=== PATIENT | female | born 1950 | race Caucasian/White ===

== ENCOUNTER 2024-09-03 12:45 | Outpatient (OUT) | payer MEDICARE, OTHER, SELFPAY ==
--- NOTE | 2024-09-03 13:02 | MM_ITS ---
Patient Name: ALKA DARBY MR#: [id number] : 1950 Exam Date: 09/03/2024 Ordering Doctor: [facility] REPORT PROCEDURE: MM TOMOSYNTHESIS DIAGNOSTIC LT, 09/03/2024, 13:03 US BREAST LT LIMITED, 09/03/2024, 13:24 COMPARISON: MG MAMM SCREEN 3D ARMAAN CAD, 08/29/2024. MG MAMM SCREEN 3D ARMAAN CAD, 03/23/2022. MG MAMM ARMAAN DIAG W CAD DIG, 07/31/2014. INDICATIONS: Abnormal Mammogram R92.8 Calculator Name NCI Breast Cancer Risk Assessment Tool 5 Year Breast Cancer Risk 3.70% Lifetime Breast Cancer Risk 7.90% Personal Breast Cancer No Personal Ovarian Cancer No Treatments None Family Cancers Sister with breast cancer at age 59; Father with lung/brain cancer at age 49. LOCATION: [facility] BREAST COMPOSITION: The breasts are heterogeneously dense,which may obscure small masses. FINDINGS: DIAGNOSTIC CATEGORY 4--SUSPICIOUS FOR MALIGNANCY. FINDING DOES NOT EXHIBIT CLASSIC FINDINGS OF BREAST CANCER: LEFT BREAST: Spot magnification views demonstrate an 8 mm slightly lobular nodule within the posterior breast , upper inner quadrant. Ultrasound evaluation demonstrates a 7 x 7 x 4 mm hypoechoic lobular nodule at the 12 o'clock position, 3.0 cm from the nipple. Ultrasound-guided biopsy is recommended. RECOMMENDATIONS: ULTRASOUND-GUIDED CORE BIOPSY: LEFT BREAST PLEASE NOTE: A NORMAL MAMMOGRAM DOES NOT EXCLUDE THE POSSIBILITY OF BREAST CANCER. A CLINICALLY SUSPICIOUS PALPABLE LUMP SHOULD BE BIOPSIED. Dictated by: Kaiser Torres M.D. on 09/03/2024 at 13:40 Approved by: Kaiser Torres M.D. on 09/03/2024 at 13:47
== END 2024-09-03 12:46 | disposition home or self-care (01) ==
PROVIDERS: PCP Nurse Practitioner; Visit Provider Nurse Practitioner
DX: R92.8 Other abnormal and inconclusive findings on diagnostic imaging of breast (principal); Z80.3 Family history of malignant neoplasm of breast; Z80.1 Family history of malignant neoplasm of trachea, bronchus and lung; Z80.8 Family history of malignant neoplasm of other organs or systems; N63.22 Unspecified lump in the left breast, upper inner quadrant
CPT/HCPCS: 76642; 77065; G0279

== ENCOUNTER 2024-09-15 07:43 | Day surgery (SDC) | payer MEDICARE, OTHER, SELFPAY ==
--- OUTSIDE RECORDS SUMMARY | 2024-09-15 07:46 | XMS_ITS | CCD ---
Author Organization [facility] Care Team Providers Care Chro Name Role Phone REQUEST, NONE LISTED Admitting Unavaila ble REQUEST, NONE LISTED Attending Unavaila ble REQUEST, NONE LISTED Consulting Unavaila ble REQUEST, NONE LISTED Admitting Unavaila ble REQUEST, NONE LISTED Attending Unavaila ble REQUEST, NONE LISTED Consulting Unavaila ble Kari Sue Unavailable CAM TAPIA Attending Unavailable CAM TAPIA Referring Unavailable CAM TAPIA Primary Care Unavailable CAM TAPIA Referring Unavailable CAM TAPIA Primary Care Unavailable CAM TAPIA Referring Unavailable CAM TAPIA Primary Care Unavailable CAM TAPIA Referring Unavailable CAM TAPIA Primary Care Unavailable Tapia ADULT CARE MANAGER-LOGISTIC SPECIALIST, Cam Logan Primary Care Provid er Allergies Allergy Classification Reported Allergen(s) Allergy Type Date of Onset Reaction(s) Facility (4 sources) fentaNYL; Translations: [FENTANYL] Drug Allergy 08-07-2023 Vomiting [facility] Medications Current Medications Medication Drug Class(es) Dates Sig (Normalized) Sig (Original) amoxicillin 875 mg oral tablet (1 source) Penicillin-class Antibacterial Start: 04-05-2023 take 1 tablet by mouth every twelve hours Amoxicillin 875 MG 1 capsule Orally Twice a day for 7 days March, Active fluticasone propionate 0.05 mg/actuat metered dose nasal spray (1 source) Corticosteroid Start: 04-05-2023 take 1 spray(s) nasal route twice daily Flonase Allergy Relief 50 MCG/ACT 1 spray in each nostril Nasally Twice a day for 14 days March, Active vitamin b12 0.1 mg oral tablet (1 source) Vitamin B12 take 1 tablet by mouth in the morning cyanocobalamin (vitamin B-12) 100 MCG tablet Take 1 tablet (100 mcg total) by mouth in the morning. Active Completed/Discontinued Medications Medication Drug Class(es) Dates Sig (Normalized) Sig (Original) ondansetron 4 mg disintegrating oral tablet (1 source) Serotonin-3 Receptor Antagonist take 1 tablet by mouth every six hours for nausea Ondansetron 4 MG dissolve 1 tablet ON TONGUE every 6 hours if needed for nausea Oral for 2 Days Not-Taking Problems Active Problems Problem Classification Problem Date Documented Date Episodic/Chronic Disorders of lipid metabolism (2 sources) Mixed hyperlipidemia; Translations: [Mixed hyperlipidemia] Onset: 08-11-2024 Chronic Immunizations and screening for infectious disease (2 sources) Encounter for screening for other viral diseases; Translations: [Encounter for screening for other viral diseases] Onset: 08-11-2024 Episodic Other screening for suspected conditions (not mental disorders or infectious disease) (14 sources) Encounter for screening for cardiovascular disorders; Translations: [Encounter for screening for other disorder] Onset: 08-11-2024 Episodic Otitis media and related conditions (1 source) Other acute nonsuppurative otitis media, right ear Episodic Residual codes; unclassified (2 sources) Asymptomatic menopausal state; Translations: [Asymptomatic menopausal state] Onset: 08-11-2024 Episodic Unclassified (1 source) Annual Exam Onset: 08-11-2024 Past or Other Problems Problem Classification Problem Date Documented Da te Episodic/Chronic Mood disorders (1 source) Mood disorders Onset: 08-11-2024 08-11-2024 Unclassified (1 source) Onset: 08-11-2024 08-11-2024 Results Test Name Value Interpretation Reference Range Facil ity MAMM SCREENING BILATERAL W C single needle operator 09-01-2024 MAMM SCREENING BILATERAL W CAD MAMM SCREENING BILATERAL W CAD LYNNETTE SCHWARTZ 1950 [id number] EXAM: MAMM SCREENING BILATERAL W CAD, 08/29/2024 10:22 AM CLINICAL INDICATIONS: Screening, Encounter for screening mammogram for malignant neoplasm of breast COMPARISON: 03/23/2022 TECHNIQUE: Bilateral digital tomosynthesis MLO and CC views of the breasts were obtained, with creation of synthetic 2D views. Computer aided detection was utilized. FINDINGS: There are scattered areas of fibroglandular density. There is a 7 mm round mass of the 11-12 o'clock left breast, 4.6 cm from the nipple. There are no right breast suspicious masses, calcifications, or areas of architectural distortion. IMPRESSION: 1. There is a 7 mm mass of the 11-12 o'clock left breast at posterior depth. This is indeterminate and targeted sonographic images are recommended for further characterization. 2. Negative mammogram of the right breast. BI-RADS: BI-RADS 0 - Incomplete. Needs additional imaging evaluation. Recommendation: Additional imaging required. Finalized by Sandra Ramsay MD on 09/01/2024 8:23 AM 0A b ADDITIONAL I Normal [facility] DEXA SCAN CENTRAL SKELETALon 08-29-2024 DEXA SCAN CENTRAL SKELETAL DEXA SCAN CENTRAL SKELETAL CLINICAL INFORMATION: Encounter for screening for osteoporosis; Asymptomatic menopausal state. Post menopausal TECHNIQUE: Dual X-ray Absorptiometry (DXA) was performed. COMPARISON: 03/15/2022 FINDINGS: LUMBAR SPINE (L1-L4): BMD is 0.780 gm/cm2. Increase of 9.6% since prior. T-score is -3.4. LEFT FEMORAL NECK: BMD is 0.701 gm/cm2. T-score is -2.4. LEFT TOTAL FEMUR: BMD is 0.643 gm/cm2. T-score is -2.9. RIGHT FEMORAL NECK: BMD is 0.739 gm/cm2. T-score is -2.1. RIGHT TOTAL FEMUR: BMD is 0.635 gm/cm2. T-score is -3.0. Total mean decrease of 1.8% since prior. The estimated 10-year probability for a major osteoporotic fracture (utilizing FRAX) is 14.9% and for a hip fracture is 4.9%. IMPRESSION: The exam is considered to be osteoporotic by the National Osteoporosis Foundation guidelines. Recommend consideration for initiation of therapy. WHO CLASSIFICATION: Normal: T-score -1.0 or above Osteopenia: T-score -1.1 to < 2.5 Osteoporosis: T-score -2.5 or lower Secondary causes of bone loss should be evaluated if clinically indicated since the etiology of low BMD cannot be determined by BMD measurement alone. The current National Osteoporosis Foundation guide recommends treating patients with FRAX ten year risk scores of greater than or equal to 3% for hip fracture or greater than or equal to 20% for major osteoporotic fracture, to reduce their fracture risk. Finalized by Van Haines MD on 08/29/2024 3:21 PM Normal [facility] CBC AND AUTO DIFFon 08-11-20 24 ABSOLUTE BASOPHIL 0.1 X10E9/L Normal 0.0-0.2 [facility] Comment on above: Performed By: #### C BCA, 82459-1, 22134-3, CMP, HA1C #### [facility] ([id number]) [address], [address] [place] [address] ABSOLUTE NEUTROPHIL 2.3 X10E9/L Normal 1.5-6.6 [facility] Comment on above: Performed By: #### C BCA, 67001-5, 81047-2, CMP, HA1C #### [facility] ([id number]) [address], [address] [place] [address] Basophils/100 WBC (Bld) 1.2 % Normal [facility] Comment on above: Performed By: #### C BCA, 75166-4, 27697-2, CMP, HA1C #### [facility] ([id number]) [address], [address] [place] [address] Eosinophils (Bld) [#/Vol] 0.1 10*3/uL Normal 0.0-0.4 [facility] Comment on above: Performed By: #### C BCA, 80567-9, 68633-9, CMP, HA1C #### [facility] ([id number]) [address], [address] [place] [address] Eosinophils/100 WBC (Bld) 1.8 % Normal [facility] Comment on above: Performed By: #### C BCA, 73703-1, 62005-5, CMP, HA1C #### [facility] ([id number]) [address], [address] [place] [address] Erythrocyte distribution width (RBC) [Ratio] 13.9 % Normal 11.5-15.0 [facility] Comment on above: Performed By: #### C BCA, 93518-7, 88449-3, CMP, HA1C #### [facility] ([id number]) [address], [facility] [address] [place] [address] Hematocrit (Bld) [Volume fraction] 45.2 % Normal 35-47 [facility] Comment on above: Performed By: #### Lizzie BCA, 31171-1, 05413-6, CMP, HA1C #### [facility] ([id number]) [address], [facility] [address] [place] [address] Hemoglobin (Bld) [Mass/Vol] 15.0 g/dL Normal 11.7-15.5 [facility] Comment on above: Performed By: #### Lizzie BCA, 74572-5, 22322-9, CMP, HA1C #### [facility] ([id number]) [address], [address] [address] Lymphocytes (Bld) [#/Vol] 1.7 10*3/uL Normal 1.0-3.5 [facility] Comment on above: Performed By: #### C BCA, 63125-5, 30283-9, CMP, HA1C #### [facility] ([id number]) [address], [address] [address] Lymphocytes/100 WBC (Bld) 38.3 % Normal [facility] Comment on above: Performed By: #### C BCA, 96339-0, 95201-8, CMP, HA1C #### [facility] ([id number]) [address] [address] [place] [address] MCH (RBC) [Entitic mass] 29.6 pg Normal 27-34 [facility] Comment on above: Performed By: #### Lizzie BCA, 40264-3, 90897-6, CMP, HA1C #### [facility] ([id number]) [address], [address] [place] [address] MCHC (RBC) [Mass/Vol] 33.2 g/dL Normal 32-36 [facility] Comment on above: Performed By: #### C BCA, 58047-4, 77469-6, CMP, HA1C #### [facility] ([id number]) [address], [facility] [address] [place] [address] MCV (RBC) [Entitic vol] 89 fL Normal 80-100 [facility] Comment on above: Performed By: #### Lizzie POLK, 57101-4, 57924-0, CMP, HA1C #### [facility] ([id number]) [address], [address] [place] [address] Monocytes (Bld) [#/Vol] 0.4 10*3/uL Normal 0-0.9 [facility] Comment on above: Performed By: #### Lizzie BCA, 72305-4, 23621-4, CMP, HA1C #### [facility] ([id number]) [address], [address] [place] [address] Monocytes/100 WBC (Bld) 8.0 % Normal [facility] Comment on above: Performed By: #### Lizzie BCA, 25972-2, 72432-4, CMP, HA1C #### [facility] ([id number]) [address], [address] [place] [address] Neutrophils/100 WBC (Bld) 50.7 % Normal [facility] Comment on above: Performed By: #### Lizzie BCA, 66806-9, 00253-6, CMP, HA1C #### [facility] ([id number]) [address], [address] [place] [address] Platelet mean volume (Bld) [Entitic vol] 8.4 fL Normal 7-12 [facility] Comment on above: Performed By: #### C BCA, 46053-2, 26850-4, CMP, HA1C #### [facility] ([id number]) [address], [address] [place] [address] Platelets (Bld) [#/Vol] 195 10*3/uL Normal 150-450 [facility] Comment on above: Performed By: #### C BCA, 92083-3, 70688-3, CMP, HA1C #### [facility] ([id number]) [address], [facility] [address] [place] [address] RBC COUNT 5.07 X10E12/L Normal 3.80-5.20 [facility] Comment on above: Performed By: #### C BCA, 91040-1, 08483-1, CMP, HA1C #### [facility] ([id number]) [address] [address] WBC (Bld) [#/Vol] 4.5 10*3/uL Normal 4.0-11.0 [facility] Comment on above: Performed By: #### C BCA, 09658-9, 72740-8, CMP, HA1C #### [facility] ([id number]) [address] [address] [place] [address] COMPREHENSIVE METABOLIC PANE Alon 08-11-2024 Albumin [Mass/Vol] 4.4 g/dL Normal 3.2-5.3 [facility] Comment on above: Performed By: #### C BCA, 76088-5, 27441-3, CMP, HA1C #### [facility] ([id number]) [address] [address] [place] [address] ALP [Catalytic activity/Vol] 86 U/L Normal 39-130 [facility] Comment on above: Performed By: #### C BCA, 81801-8, 91437-9, CMP, HA1C #### [facility] ([id number]) [address], [address] [place] [address] ALT [Catalytic activity/Vol] 16 U/L Normal 0-31 [facility] Comment on above: Performed By: #### C BCA, 05736-2, 23284-3, CMP, HA1C #### [facility] ([id number]) [address], [address] [place] [address] Anion gap [Moles/Vol] 9 mmol/L Normal 5-15 [facility] Comment on above: Performed By: #### C BCA, 90839-8, 10335-4, CMP, HA1C #### [facility] ([id number]) [address], [address] [place] [address] AST [Catalytic activity/Vol] 23 U/L Normal 0-41 [facility] Comment on above: Performed By: #### C BCA, 05050-6, 34660-6, CMP, HA1C #### [facility] ([id number]) [address], [address] [place] [address] Bilirubin [Mass/Vol] 1.0 mg/dL Normal 0.3-1.2 [facility] Comment on above: Performed By: #### C BCA, 57955-9, 80356-9, CMP, HA1C #### [facility] ([id number]) [address], [address] [place] [address] Calcium [Mass/Vol] 9.7 mg/dL Normal 8.5-10.5 [facility] Comment on above: Performed By: #### C BCA, 39354-9, 42305-1, CMP, HA1C #### [facility] ([id number]) [address], [address] [place] [address] Chloride [Moles/Vol] 103 mmol/L Normal 98-109 [facility] Comment on above: Performed By: #### C BCA, 74408-1, 03957-4, CMP, HA1C #### [facility] ([id number]) [address], [address] [place] [address] CO2 [Moles/Vol] 30 mmol/L Normal 22-32 [facility] Comment on above: Performed By: #### C BCA, 40427-7, 07846-9, CMP, HA1C #### [facility] ([id number]) [address], [facility] [address] [place] [address] Creatinine [Mass/Vol] 0.72 mg/dL Normal 0.40-1.00 [facility] Comment on above: Result Comment: METH OD TRACEABLE TO IDMS STANDARD Performed By: #### C BCA, 14698-2, 85303-8, CMP, HA1C #### [facility] ([id number]) [address] [address] GFR/1.73 sq M.predicted among non-blacks MDRD (S/P/Bld) [Vol rate/Area] 87 mL/min/{1.73_m2} Normal >59 [facility] Comment on above: Result Comment: Reported eGFR is based on the CKD-EPI 2020 equation that does not use a race coefficient. Performed By: #### C BCA, 90859-5, 15011-1, CMP, HA1C #### [facility] ([id number]) [address] [address] [place] [address] Glucose [Mass/Vol] 93 mg/dL Normal 65-99 [facility] Comment on above: Performed By: #### C BCA, 38451-4, 85221-4, CMP, HA1C #### [facility] ([id number]) [address] [address] [place] [address] Potassium [Moles/Vol] 3.9 mmol/L Normal 3.5-5.0 [facility] Comment on above: Performed By: #### C BCA, 93465-2, 47818-1, CMP, HA1C #### [facility] ([id number]) [address] [address] [place] [address] Protein [Mass/Vol] 7.2 g/dL Normal 6.0-8.0 [facility] Comment on above: Performed By: #### C BCA, 82138-2, 34452-8, CMP, HA1C #### [facility] ([id number]) [address] [address] Sodium [Moles/Vol] 142 mmol/L Normal 134-146 [facility] Comment on above: Performed By: #### C BCA, 08931-7, 26487-3, CMP, HA1C #### [facility] ([id number]) [address] [address] Urea nitrogen [Mass/Vol] 30 mg/dL High 5-27 [facility] Comment on above: Performed By: #### C BCA, 56535-6, 27824-1, CMP, HA1C #### [facility] ([id number]) [address] [address] HCV Ab IA Qlon 08-11-2024 ANTI HCV W/PCR REFLX Non-Reactive Normal NRCT [facility] Comment on above: Result Comment: If recent infection suspected, recommend repeat testing (>2 months). Wecwjt-bo-leaail ratio is <0.80. Performed By: #### C BCA, 91316-8, 51845-9, CMP, HA1C #### [facility] ([id number]) [address] [address] HGB A1C (GLYCO-HGB)on 2023 Glucose [Mass/Vol] 114 mg/dL Normal [facility] Comment on above: Performed By: #### C BCA, 31063-7, 67873-8, CMP, HA1C #### [facility] ([id number]) [address] [address] HbA1c (Bld) [Mass fraction] 5.6 % Normal 4.4-5.6 [facility] Comment on above: Result Comment: NOTE ADA Guidelines Result HgbA1c Normal : less than 5.7 % Prediabetes : 5.7 % to 6.4 % Diabetes : > 6.4 % Use with caution in patients with abnormal hemoglobin variants as the half-life of red blood cells and in vivo glycation rates are affected. Performed By: #### C BCA, 83688-1, 70712-1, CMP, HA1C #### [facility] ([id number]) [address], [address] [place] [address] Lipid 1996 panelon 4 Cholesterol [Mass/Vol] 259 mg/dL High 150-200 [facility] Comment on above: Performed By: ###Diana Samuel BCA, 05887-9, 44942-8, CMP, HA1C #### [facility] ([id number]) [address], [address] [place] [address] Cholesterol in HDL [Mass/Vol] 72 mg/dL Normal >39 [facility] Comment on above: Result Comment: HDL <40 mg/dL - High Risk HDL > or = 40mg/dL- Desirable HDL >60 mg/dL - Negative Risk Performed By: #### C BCA, 95375-7, 19521-3, CMP, HA1C #### [facility] ([id number]) [address], [address] [place] [address] Cholesterol in LDL [Mass/Vol] 168 mg/dL High <130 [facility] Comment on above: Result Comment: LDL <100 mg/dL - Desirable LDL >160 mg/dL - High Risk Performed By: #### C BCA, 32291-5, 99836-4, CMP, HA1C #### [facility] ([id number]) [address], [address] [place] [address] Cholesterol in VLDL [Mass/Vol] 19 mg/dL Normal 0-30 [facility] Comment on above: Performed By: #### C BCA, 40924-6, 56638-6, CMP, HA1C #### [facility] ([id number]) [address] [facility] [place] [address] CHOLESTEROL:HDL 3.6 Normal 1.0-5.0 [facility] Comment on above: Performed By: #### C BCA, 25332-4, 85598-7, CMP, HA1C #### [facility] ([id number]) [address] [facility] [place] [address] Triglyceride [Mass/Vol] 95 mg/dL Normal 27-150 [facility] Comment on above: Performed By: #### C BCA, 33391-2, 92131-4, CMP, HA1C #### [facility] ([id number]) [address], [address] [place] [address] SIXTO - LIPID PROFILEon 2021 CHOL-HDL RATIO NORM SEE BELOW Normal [facility] Comment on above: Result Comment: 3.3 - 4.4 LOW RISK 4.4 - 7.1 AVERAGE RISK 7.1 - 11.0 MODERATE RISK >11.0 HIGH RISK Performed By: #### D ATLIPI #### [facility] [address] [place], [place] [address] Dr. Mary Ellen Moody Cholesterol [Mass/Vol] 266 mg/dL Critically high <=200 [facility] [place] [facility] Comment on above: Performed By: #### D ATLIPI #### [facility] [address] [place], [place] [address] Dr. Mary Ellen Moody Cholesterol in HDL [Mass/Vol] 67 mg/dL Critically high 40-60 [facility] [place] [facility] Comment on above: Performed By: #### D ATLIPI #### [facility] [address] [place] [address] [address] Mary Ellen Moody Cholesterol in LDL [Mass/Vol] 169.6 mg/dL Normal [facility] Comment on above: Performed By: #### D ATLIPI #### [facility] [address] [place] [address] [address] Mary Ellen Moody Cholesterol.total/C holesterol in HDL [Mass ratio] 4.0 {ratio} Normal [facility] [place] [facility] Comment on above: Performed By: #### D ATLIPI #### [facility] [address] [place] [address] [address] Mary Ellen Moody HDL NORMAL > or = 60 mg/dl - LOW CARDIOVASCULAR RISK <40 mg/dl - HIGH CARDIOVASCULAR RISK Normal [facility] [place] [facility] Comment on above: Performed By: #### D ATLIPI #### [facility] [address] [place] [address] [address] Mary Ellen Moody LDL CALC NORMAL SEE BELOW Normal [facility] Comment on above: Result Comment: <100 mg/dl OPTIMAL 100 - 129 mg/dl NEAR OR ABOVE OPTIMAL 130 - 159 mg/dl BORDERLINE HIGH 160 - 189 mg/dl HIGH >190 mg/dl VERY HIGH Performed By: #### D ATLIPI #### [facility] [address] [place] [address] [address] Mary Ellen Moody Triglyceride [Mass/Vol] 147 mg/dL Normal <=150 [facility] Comment on above: Performed By: #### D ATLIPI #### [facility] [address] [place] [address] [address] Mary Ellen Moody VLDL CALC 29.4 mg/dL Normal [facility] [place] [facility] Comment on above: Performed By: #### D ATLIPI #### [facility] [address] [place] [address] [address] Mary Ellen Moody CBC AUTO DIFFon 02-04-2022 BASO # 0.1 103/ul Normal 0.0-0.1 [facility] [place] [facility] Comment on above: Performed By: #### D ATCBC #### [facility] [address] [place] [address] [address] Mary Ellen Moody Basophils/100 WBC (Bld) 1.0 % Normal 0.2-2.0 [facility] Comment on above: Performed By: #### D ATCBC #### [facility] [address] [place] [address] Dr. Mary Ellen Moody EO # 0.2 103/ul Normal 0.0-0.7 [facility] Comment on above: Performed By: #### D ATCBC #### [facility] [address] [place] [address] [address] Mary Ellen Moody Eosinophils/100 WBC (Bld) 2.5 % Normal 0.9-7.0 [facility] [place] [facility] Comment on above: Performed By: #### D ATCBC #### [facility] [address] [place] [address] Dr. Mary Ellen Moody Erythrocyte distribution width (RBC) [Ratio] 12.5 % Normal 11.0-15.0 [facility] [place] [facility] Comment on above: Performed By: #### D ATCBC #### [facility] [address] [place] [address] Dr. Mary Ellen Moody Hematocrit (Bld) [Volume fraction] 44.4 % Normal 36.0-48.0 [facility] [place] [facility] Comment on above: Performed By: #### D ATCBC #### [facility] [address] [place] [address] Dr. Mary Ellen Moody Hemoglobin (Bld) [Mass/Vol] 14.8 g/dL Normal 12.0-16.0 [facility] Comment on above: Performed By: #### D ATCBC #### [facility] [address] [place] [address] Dr. Mary Ellen Moody IG # 0.01 10e3/ul Normal 0.00-0.03 [facility] Comment on above: Performed By: #### D ATCBC #### [facility] [address] [place] [address] Dr. Mary Ellen Moody IG % 0.2 % Normal 0.0-0.5 [facility] Comment on above: Performed By: #### D ATCBC #### [facility] [address] [place] [address] Dr. Mary Ellen Moody LYMPH # 2.8 103/ul Normal 1.2-3.8 [facility] Comment on above: Performed By: #### D ATCBC #### [facility] [address] [place] [address] Dr. Mary Ellen Moody Lymphocytes/100 WBC (Bld) 47.5 % Normal 20.5-60.0 [facility] Comment on above: Performed By: #### D ATCBC #### [facility] [address] [place] [address] Dr. Mary Ellen Moody MCH (RBC) [Entitic mass] 30.6 pg Normal 26.7-34.0 [facility] Comment on above: Performed By: #### D ATCBC #### [facility] [address] [place] [address] Dr. Mary Ellen Moody MCHC (RBC) [Mass/Vol] 33.3 g/dL Normal 29.9-35.2 [facility] Comment on above: Performed By: #### D ATCBC #### [facility] [address] [place] [address] Dr. Mary Ellen Moody MCV (RBC) [Entitic vol] 91.7 fL Normal 81.0-99.0 [facility] Comment on above: Performed By: #### D ATCBC #### [facility] [address] [place] [address] Dr. Mary Ellen Moody MONO # 0.5 103/ul Normal 0.3-0.8 [facility] Comment on above: Performed By: #### D ATCBC #### [facility] [address] [place] [address] Dr. Mary Ellen Moody Monocytes/100 WBC (Bld) 8.3 % Normal 1.7-12.0 [facility] Comment on above: Performed By: #### D ATCBC #### [facility] [address] [place] [address] Dr. Mary Ellen Moody NEUT # 2.4 103/ul Normal 1.4-6.5 [facility] Comment on above: Performed By: #### D ATCBC #### [facility] [address] [place] [address] [address] Mary Ellen Moody Neutrophils/100 WBC (Bld) 40.5 % Critically low 43.0-75.0 [facility] [place] [facility] Comment on above: Performed By: #### D ATCBC #### [facility] [address] [address] [address] Mary Ellen Moody Platelet mean volume (Bld) [Entitic vol] 9.8 fL Normal 9.5-13.5 [facility] Comment on above: Performed By: #### D ATCBC #### [facility] [address] [address] [address] Mary Ellen Moody PLT 203 103/ul Normal 150-450 [facility] Comment on above: Performed By: #### D ATCBC #### [facility] [address] [place] [address] Dr. Mary Ellen Moody RBC 4.84 106/ul Normal 4.20-5.40 [facility] Comment on above: Performed By: #### D ATCBC #### [facility] [address] [place] [address] Dr. Mary Ellen Moody WBC 5.9 103/ul Normal 4.0-11.0 [facility] Comment on above: Performed By: #### D ATCBC #### [facility] [address] [place] [address] Dr. Mary Ellen Moody SIXTO- BMP WITH LIPIDon 2021 Anion gap [Moles/Vol] 9.1 mmol/L Normal [facility] Comment on above: Performed By: #### D ATBMP #### [facility] [address] [place] [address] Dr. Mary Ellen Moody Calcium [Mass/Vol] 9.3 mg/dL Normal 8.4-10.2 [facility] Comment on above: Performed By: #### D ATBMP #### [facility] [address] [place] [address] Dr. Mary Ellen Moody Chloride [Moles/Vol] 104 mmol/L Normal 98-107 [facility] Comment on above: Performed By: #### D ATBMP #### [facility] [address] [address] [address] Mary Ellen Moody Cholesterol [Mass/Vol] 258 mg/dL Critically high <=200 [facility] Comment on above: Performed By: #### D ATBMP #### [facility] [address] [address] [address] Mary Ellen Moody Cholesterol in HDL [Mass/Vol] 73 mg/dL Normal [facility] Comment on above: Performed By: #### D ATBMP #### [facility] [address] [address] [address] Mar yEllen Moody Cholesterol in LDL [Mass/Vol] 153.8 mg/dL Normal [facility] Comment on above: Performed By: #### D ATBMP #### [facility] [address] [address] [address] Mary Ellen Moody CO2 [Moles/Vol] 31.9 mmol/L Critically high 22.0-30.0 [facility] Comment on above: Performed By: #### D ATBMP #### [facility] [address] [address] [address] Mary Ellen Moody Creatinine [Mass/Vol] 0.74 mg/dL Normal 0.52-1.04 [facility] Comment on above: Performed By: #### D ATBMP #### [facility] [address] [address] [address] Mary Ellen Moody EGFR-AF SYRIAN >60 Normal >=60 [facility] Comment on above: Performed By: #### D ATBMP #### [facility] [address] [address] [address] Mary Ellen Moody EGFR-NON AF SYRIAN >60 Normal >=60 [facility] Comment on above: Performed By: #### D ATBMP #### [facility] [address] [address] [address] Mary Ellen Moody Glucose [Mass/Vol] 95 mg/dL Normal 74-106 [facility] Comment on above: Performed By: #### D ATBMP #### [facility] [address] [address] [address] Mary Ellen Moody HDL NORMAL > or = 60 mg/dl - LOW CARDIOVASCULAR RISK <40 mg/dl - HIGH CARDIOVASCULAR RISK Normal [facility] Comment on above: Performed By: #### D ATBMP #### [facility] [address] [address] [address] Mary Ellen Moody LDL CALC NORMAL SEE BELOW Normal [facility] Comment on above: Result Comment: <100 mg/dl OPTIMAL 100 - 129 mg/dl NEAR OR ABOVE OPTIMAL 130 - 159 mg/dl BORDERLINE HIGH 160 - 189 mg/dl HIGH >190 mg/dl VERY HIGH Performed By: #### D ATBMP #### [facility] [address] [address] [address] Mary Ellen Moody Potassium [Moles/Vol] 4.0 mmol/L Normal 3.4-5.0 [facility] Comment on above: Performed By: #### D ATBMP #### [facility] [address] [address] [address] Mary Ellen Moody Sodium [Moles/Vol] 141 mmol/L Normal 137-145 [facility] Comment on above: Performed By: #### D ATBMP #### [facility] [address] [address] [address] Mary Ellen Moody Triglyceride [Mass/Vol] 156 mg/dL Critically high <=150 [facility] Comment on above: Performed By: #### D ATBMP #### [facility] [address] [address] [address] Mary Ellen Moody Urea nitrogen [Mass/Vol] 15.0 mg/dL Normal 7.0-17.0 [facility] Comment on above: Performed By: #### D ATBMP #### [facility] [address] [address] [address] Mary Ellen Moody Urea nitrogen/Creatinine [Mass ratio] 20.3 mg/mg Normal [facility] Comment on above: Performed By: #### D ATBMP #### [facility] [address] [address] [address] Mary Ellen Moody VLDL CALC 31.2 mg/dL Normal [facility] Comment on above: Performed By: #### D ATBMP #### [facility] [address] [place] [address] Dr. Mary Ellen Moody Vital Signs Date Time Vital Sign Value Performing Clinician Facility 04-05-2023 13:05-0400 Body height 160.02 cm Kari Sue Other [facility] 04-05-2023 13:05-0400 Body mass index (BMI) [Ratio] 21.43 kg/m2 Kari Sue Other [facility] 04-05-2023 13:05-0400 Body temperature 97 [degF] Kari Sue Other [facility] 04-05-2023 13:05-0400 Body weight 54.89 kg Kari Sue Other [facility] Other 04-05-2023 13:05-0400 Respiratory rate 18 /min Kari Sue Other [facility] Other 04-05-2023 13:05-0400 SaO2% (BldA) [Mass fraction] 96 % Kari Sue Other [facility] Other Encounters Encounter Date Encounter Type Care Provider Facility Start: 09-01-2024 End: 09-01-2024 Telephone encounter Judy Mathews [facility] Physician s Internal Medicine - Family Medicine Start: 08-29-2024 End: 08-29-2024 ambulatory [facility] Start: 08-11-2024 End: 08-11-2024 ambulatory [facility] Start: 08-11-2024 End: 08-11-2024 ambulatory [facility] Start: 08-11-2024 Encounter for genera l adult medical examination without abnormal findings [facility] Start: 04-05-2023 End: 04-05-2023 ambulatory Kari Sue Other [facility] Start: 04-05-2023 Office outpatient ne w 30 minutes Kari Sue [facility] Start: 09-04-2022 End: 09-05-2022 ambulatory NONE LISTED REQUEST Facility: Start: 02-04-2022 End: 02-05-[address] NONE LISTED REQUEST Facility: Procedures Date Procedure Procedure Detail Performing Clinician Start: 08-11-2024 Adult depression scr eening assessment Judy Fungluis SMITH Plan of Treatment Date Care Activity Detail Author Start: 08-12-2025 End: 08-12-2025 Patient encounter procedure 08/12/2025 8:00 AM EDT Office Visit [facility] Internal Medicine - Family Medicine [address] [place] [address] Cam Tapia, ADULT CARE MANAGER-LOGISTIC SPECIALIST [address] [place] [address] [facility] Internal Medicine - Family Medicine Start: 08-11-2025 Adult BMI Screening Adult BMI Screening [facility] Start: 08-11-2025 Depression Screening Depression Screening [facility] Start: 08-11-2025 Fall Risk Screening Fall Risk Screening [facility] Start: 08-11-2025 Medicare Annual Wellness Visit Medicare Annual Wellness Visit [facility] Start: 08-11-2025 Tobacco Screening Tobacco Screening [facility] Start: 07-27-2024 COVID-19 Vaccine ( season) COVID-19 Vaccine ( season) [facility] Start: 07-27-2024 Influenza vaccination Influenza Vaccine [facility] Start: 01-21-2013 Administration of varicella zoster vaccine Zoster (Shingles) Vaccine (2 of 3) [facility] Start: 1968 DTaP,Tdap and Td Vaccines (1 - Tdap) DTaP,Tdap and Td Vaccines (1 - Tdap) [facility] Immunizations Immunization Date Immunization Notes Care Provider Fa memo 08-07-2023 Pneumococcal Conjuga te 20-valent Judy Forrider [facility] 08-23-2017 pneumococcal conjuga te vaccine, 13 valent Judy Forrider [facility] 11-26-2012 zoster vaccine, live Judy Forrider [facility] 11-26-2012 zoster vaccine, unspecified formulation Judy Tanger [facility] Payers Date Payer Category Payer Unknown [employer] [facility] [place] [employer] [place] SUPPLE[employer] PLAN [id number] 2019-Present [phone] [id number] [employer] [place] [employer] [employer] [place] [id number] 2019 Unknown [id number] 2013 Medicare MEDICARE MEDICAR E PART A & B [id number] 2013-Present [phone] [address] [place] [address] [id number] 2013 Medicare [id number] 1959 Self-pay 1950 Unknown [id number] 1950 Unknown [id number] 1950 Unknown [id number] 86 1950 Unknown [id number] 86 Unknown [id number] 3 Unknown [id number] 3 Unknown [id number] Social History Date Type Detail Facility Unknown if ever smoked [facility] Start: 05-07-2019 End: 08-11-2024 [facility] Start: 03-20-2022 Tobacco smoking stat us NHIS Never smoked tobacco [facility] Start: 03-20-2022 Tobacco use and exposure Smokeless tobacco non-user [facility] marker.to [facility] Start: 08-29-2024 Alcoholic beverage intake Lifetime non-drinker (finding) [facility] Start: 05-07-2019 End: 08-11-2024 History of Social function [facility] Adolescent depressio n screening assessment 0 [facility] Start: 1950 Sex assigned at Not on file P [facility] Note 09-01-2024 Telephone Encounter - Judy Mathews CMA - 09/01/2024 4:23 PM EDT Note Date & Type Note Facility 09-01-2024 Miscellaneous Notes Formattin g of this note might be different from the original. Spoke to pt and relayed test results. Pt is currently refusing the mammogram. I discussed with her the option of going to another hospital. Pt states she will call tomorrow to schedule her ultrasound. documented in this encounter [facility] Telephone encounter Note 09-01-2024 Telephone Encounter - Judy Mathews CMA - 09/01/2024 4:23 PM EDT Note Date & Type Note Facility 09-01-2024 Telephone encount er Note Spoke to pt and relayed test results. Pt is currently refusing the mammogram. I discussed with her the option of going to another hospital. Pt states she will call tomorrow to schedule her ultrasound. [facility] Evaluation note 04-05-2023 Note Date & Type Note Facility 05-11-2023 Evaluation note Encounter Date Diagnosis Assessment Notes March, Acute otitis media with effusion of right ear (ICD-10 - H65.191) No testing performed today in office. Discussed diagnosis with patient. Advised patient to take antibiotics as directed, complete entire course even if feeling better. Use OTC Flonase and Zyrtec as directed. Supportive care, Tylenol/Motrin as needed for aches/fever, warm compress to affected ear, push fluids and rest. Follow up with PCP if symptoms do not improve in the next. Immediate eval for severe ear pain, severe headache, neck pain/stiffness, pain, erythema, or redness behind the ear, fever, N/V, hearing loss, fever, or any other new or concerning symptoms. Patient verbalizes understanding and is agreeable to treatment plan. [facility] Other History general Narrative - Reported Note Date & Type Note Facility History general Narrative - Reported Type Surgical History breast augmentation Surgical History breast implant removal [facility] Other Instructions Note Date & Type Note Facility Instructions Not on filedocumented in this en counter [facility] Summary Purpose Family History No Family History Records FoundNo Family History Records FoundNo Family History Records FoundNo Family History Records Found Advance Directives No Advanced Directives Records FoundNo Advanced Directives Records FoundNo Advanced Directives Records FoundNo Advanced Directives Records Found Additional Source Comments INFORMATION SOURCE (unrecogn ized section and content) DATE CREATED AUTHOR 09/04/2022 [facility] DATE CREATED AUTHOR AUTHOR'S ORGANIZ ATION 08/12/2024 [facility] DATE CREATED AUTHOR AUTHOR'S ORGANIZ ATION 08/13/2024 [facility] DATE CREATED AUTHOR AUTHOR'S ORGANIZ ATION 09/01/2024 [facility] REASON FOR VISIT (unrecogniz ed section and content) ALLERGIES/SINUS Care Teams (unrecognized sec tion and content) Chro Relationship Specialty Start Date End Date Cam Tapia, ADULT CARE MANAGER-LOGISTIC SPECIALIST [address] [place] [address] PCP - General Family Medicine 03/20/22 FOR RECORDS PERTAINING TO PATIENTS WHO ARE OR HAVE BEEN ENROLLED IN A CHEMICAL DEPENDENCY/SUBSTANCEABUSE PROGRAM, SOME INFORMATION MAY BE OMITTED. This clinical summary was aggregated from multiple sources. Caution should be exercised in using it in the provision of clinical care. This summary normalizes information from multiple sources, and as a consequence, information in this document may materially change the coding, format and clinical context of patient data. In addition, data may be omitted in some cases. CLINICAL DECISIONS SHOULD BE BASED ON THE PRIMARY CLINICAL RECORDS. [facility] [employer] [facility]. provides no warranty or guarantee of the accuracy or completeness of information in this document.
--- NOTE | 2024-09-15 07:47 | US_ITS ---
[address] [address] Patient Name: ALKA DARBY MRN: [id number] date: 1950 Sex: F Assigned Patient Location: Current Patient Location: Accession/Order Number: [id number] Exam Date: 09/15/2024 07:50 Report Date: 09/15/2024 09:48 At the request of: CAM TAPIA Procedure: US breast vac bx w/ clip LT EXAMINATION: US breast vac bx w/ clip LT HISTORY: Lobular Nodular COMPARISON: No relevant comparison available. TECHNIQUE: After obtaining informed consent, ultrasound-guided fine needle aspiration was performed in the usual sterile manner. FINDINGS: IMAGING: Ultrasound. BIOPSY NEEDLE: 13-gauge vacuum-assisted mammotome LOCATION: 7 mm left 12:00 nodule SPECIMEN TYPE: 5 core samples. LOCAL ANESTHETIC: 3 cc 1% buffered lidocaine superficial. 7 cc 1% buffered lidocaine with epinephrine deep. COMPLICATIONS: None. LABORATORY: Prepared slide smears and washings for cell block evaluation. OTHER: Negative. PATHOLOGY: Pending. An addendum will be added when results are available. US/US breast vac bx w/ clip LT IMPRESSION: 1. Uneventful ultrasound guided core biopsy of the left breast with clip placement 2. Pathology results are pending. Electronically authenticated by: JULIEN MICHAUD Date: 09/15/2024 09:48
--- NOTE | 2024-09-15 07:54 | MM_ITS ---
Patient Name: ALKA DARBY MR#: [id number] : 1950 Exam Date: 09/15/2024 Ordering Doctor: CAM TAPIA RADIOLOGY REPORT PROCEDURE: MM POST BIOPSY LT COMPARISON: MM TOMOSYNTHESIS DIAGNOSTIC LT, 09/03/2024. INDICATIONS: Breast Nodule BREAST COMPOSITION: FINDINGS: Post-Procedure Mammogram for Marker Placement BIOPSY MARKER: A metallic marker has been placed in the targeted location within the 9 o'clock position of the left breast. BREAST FINDINGS: The previously noted nodule is no longer seen Dictated by: Michele Sevilla MD on 09/16/2024 at 11:06 Approved by: Michele Sevilla MD on 09/16/2024 at 11:07
[2024-09-15 07:55] VITALS: BP 109/69; PULSE 68; O2SAT 97
[2024-09-15] MEDS: LIDOCAINE HCL 10 ML, SODIUM BICARBONATE 1 MEQ INJ (08:35)
[2024-09-15] MEDS: LIDOCAINE HCL/EPINEPHRINE 10 ML, SODIUM BICARBONATE 1 MEQ INJ (08:35)
--- NOTE | 2024-09-15 09:35 | SUR.PREOP ---
09/03/24 Pt instructed on procedure,date, time, and prep.
== END 2024-09-15 09:05 | disposition home or self-care (01) ==
LOC: US 07:43
PROVIDERS: Radiology Diagnostic Radiology; PCP Nurse Practitioner; Visit Provider Nurse Practitioner
DX: D24.2 Benign neoplasm of left breast (principal)
CPT/HCPCS: 19083; 77065; 88305